=== PATIENT | male | born 1960 | race African-American/Black ===

== ENCOUNTER → 2016-05-17 | Outpatient (CLI) | payer OTHER ==
--- NOTE | 2016-05-17 16:39 | REP ---
Clinical: Flu-like symptoms . Comparison: None . Technique: PA and lateral. Findings: The mediastinum and cardiac silhouette are normal. The lung arnold are without acute consolidation, effusion, or pneumothorax. The skeletal structures are intact and normal. Impression: No focal consolidation. Signed by Ricardo Morin MD 05/17/2016 09:30 A
== END ==
LOC: M RAD 08:43
PROVIDERS: ATTEND Surgery
DX: J98.8 Other specified respiratory disorders (principal)